=== PATIENT | male | born 1980 | race African-American/Black ===

== ENCOUNTER 2016-07-04 09:19 | Emergency (ER) | payer MEDICAID ==
[~2016-07-04] VITALS: Ht 167.6 cm; Wt 65.8 kg
[2016-07-04 09:56] VITALS: BP 128/84
== END 2016-07-04 10:32 | disposition home or self-care (01) ==
LOC: ER 09:19
DX: J03.90 Acute tonsillitis, unspecified (principal); J20.9 Acute bronchitis, unspecified; F17.210 Nicotine dependence, cigarettes, uncomplicated